=== PATIENT | female | born 1990 | race Caucasian/White ===

== ENCOUNTER 2020-11-22 13:00 | Outpatient (RCR) | payer BC | END 2020-11-24 | LOC: PT 13:00 | PROVIDERS: ATTEND Podiatrist Foot & Ankle Surgery | DX: M72.2 Plantar fascial fibromatosis (principal); M77.32 Calcaneal spur, left foot; M77.31 Calcaneal spur, right foot ==

== ENCOUNTER 2020-12-23 10:00 | Outpatient (RCR) | payer BC | END 2020-12-25 | LOC: PT 10:00 | PROVIDERS: ATTEND Podiatrist Foot & Ankle Surgery | DX: M72.2 Plantar fascial fibromatosis (principal); M77.32 Calcaneal spur, left foot; M77.31 Calcaneal spur, right foot | CPT/HCPCS: 97139 ==

== ENCOUNTER 2021-01-02 09:00 | Outpatient (RCR) | payer BC | END 2021-01-24 | LOC: PT 09:00 | PROVIDERS: ATTEND Podiatrist Foot & Ankle Surgery | DX: M72.2 Plantar fascial fibromatosis (principal); M77.32 Calcaneal spur, left foot; M77.31 Calcaneal spur, right foot ==